=== PATIENT | male | born 1990 | race Caucasian/White ===

== ENCOUNTER 2018-02-22 23:53 | Emergency (ER) | payer OTHER ==
[~2018-02-22] VITALS: Ht 182.9 cm; Wt 53.1 kg
[2018-02-23] MEDS ORDERED: ESTRADIOL 1 MG T1 M1 PO (00:04)
[2018-02-23] MEDS ORDERED: ALDACTONE25 MG PO (00:05)
[2018-02-23] MEDS ORDERED: ACETAMINOPHEN-1 EAC1 PO (01:53)
[2018-02-23 02:04] VITALS: BP 122/64
== END 2018-02-23 02:05 | disposition home or self-care (01) ==
LOC: M.ERS 23:53 → EDSEX 23:53 → M.ERS 02-23 02:05
DX: H05.221 Edema of right orbit (principal)